=== PATIENT | female | born 1985 | race American Indian/Alaskan Native ===

== ENCOUNTER 2018-10-18 09:35 | Emergency (ER) | payer MEDICARE ==
[2018-10-18 10:05] VITALS: BP 116/71
[2018-10-18] MEDS ORDERED: LIDOCAINE VISCOUS 2% PO ONE (11:54)
--- NOTE | 2018-10-18 12:00 | Emergency Department Report ---
Abscess Boil HPI - HPI Chief Complaint: Skin/Abscess/Foreign Body Stated Complaint: FOREIGN OBJECT STUCK IN EAR Time Seen by Provider: 10/18/18 11:53 Duration: 2 Days Location: Other (L EAR) Severity: Mild History: Yes Pain, Yes Foreign Body, No Fever, No Purulent Drainage, No Numbness, No Previous History, No Insect Bite HPI: 33 YO WITH EAR BUD STUCK IN EAR. Home Medications: Previous Rx's Medication Instructions Recorded Last Taken Type Ibuprofen [Motrin] 400 mg PO Q8H PRN #50 tablet 10/18/18 Unknown Rx Allergies/Adverse Reactions: Allergies Allergy/AdvReac Type Severity Reaction Status Date / Time No Known Allergies Allergy Verified 10/18/18 10:01 ED Review of Systems ROS: Stated complaint: FOREIGN OBJECT STUCK IN EAR Other details as noted in HPI Comment: All other systems reviewed and negative Constitutional: denies: chills Eyes: denies: eye pain ENT: as per HPI, ear pain Respiratory: denies: cough Cardiovascular: denies: palpitations Endocrine: denies: see HPI Gastrointestinal: denies: nausea Genitourinary: denies: dysuria Neurological: denies: headache Psychiatric: denies: depression Hematological/Lymphatic: denies: easy bleeding ED Past Medical Hx - Past Medical History Previous Medical History?: No - Surgical History Past Surgical History?: No - Social History Smoking Status: Never Smoker Substance Use Type: None - Medications Home Medications: Home Medications Medication Instructions Recorded Confirmed Last Taken Type Ibuprofen [Motrin] 400 mg PO Q8H PRN #50 tablet 10/18/18 Unknown Rx ED Abscess Boil Physical Exam - Exam General: Vital signs noted. No distress. Alert and acting appropriately. Exam: Yes Normal Neurologic Exam, Yes Normal Circulation, No Tenderness, No Fluctuance, No Surrounding Cellulites/Erythema, No Lymphangitis, No Crepitation, No Heart Murmur Exam: Patient is a 33-year-old female who has an orange earbud stuck in her left ear. It was removed without difficulty using lidocaine as a topical anesthetic. ED Course Vital Signs 10/18/18 10:01 Temperature 97.9 F Pulse Rate 88 Respiratory 18 Rate Blood Pressure 116/71 O2 Sat by Pulse 100 Oximetry Critical care attestation.: If time is entered above; I have spent that time in minutes in the direct care of this critically ill patient, excluding procedure time. ED Medical Decision Making - Medical Decision Making FB REMOVED WO DIFFICULTY - Differential Diagnosis FB EAR ED Disposition Clinical Impression: Ear foreign body Disposition: TO HOME OR SELFCARE Is pt being admited?: No Does the pt Need Aspirin: No Condition: Stable Instructions: Ear Foreign Body (ED) Additional Instructions: NOTING IN EAR Prescriptions: Ibuprofen [Motrin] 400 mg PO Q8H PRN #50 tablet PRN Reason: Pain , Severe (7-10) Referrals: BENNY HAGEN MD [Primary Care Provider] - 3-5 Days Time of Disposition: 12:00
[2018-10-18] MEDS ORDERED: IBUPROFEN PO ONE (12:01)
== END 2018-10-18 12:29 | disposition home or self-care (01) ==
LOC: ED 09:35
DX: T16.2XXA Foreign body in left ear, initial encounter (principal); X58.XXXA Exposure to other specified factors, initial encounter; Y93.89 Activity, other specified; Y92.89 Other specified places as the place of occurrence of the external cause; Y99.8 Other external cause status
CPT/HCPCS: 99282; 99283